=== PATIENT | male | born 1970 | race Caucasian/White ===

== ENCOUNTER → 2020-10-19 | Day surgery (SDC) | payer OTHER ==
[~2020-10-19] MED LIST: ECOTRIN81 MG PO; LISINOPRIL10 MG PO; METFORMIN HCL500 MG PO; SERTRALINE HCL100 MG PO; STEGLATRO5 MG PO; TRULICITY1.5 MG/0.5 SQ; VIAGRA100 MG PO
== END | disposition home or self-care (01) ==
LOC: OR 07:18
DX: K63.5 Polyp of colon (principal); K64.8 Other hemorrhoids; E11.9 Type 2 diabetes mellitus without complications; E66.01 Morbid (severe) obesity due to excess calories; Z88.0 Allergy status to penicillin; Z83.3 Family history of diabetes mellitus; Z82.49 Family history of ischemic heart disease and other diseases of the circulatory system; Z79.84 Long term (current) use of oral hypoglycemic drugs; Z68.39 Body mass index [BMI] 39.0-39.9, adult
CPT/HCPCS: 82962; J2704; J7040

== ENCOUNTER → 2021-06-29 | Outpatient (CLI) | payer OTHER | LOC: KOH-I 10:00 | DX: M54.2 Cervicalgia (principal); M47.812 Spondylosis without myelopathy or radiculopathy, cervical region | CPT/HCPCS: 72040 ==